=== PATIENT | female | born 1995 | race Hispanic/Latino ===

== ENCOUNTER 2017-09-07 14:52 | Emergency (ER) | payer SELFPAY ==
[2017-09-07] MEDS ORDERED: ONDANSETRON ODT 4 MG TAB ONE (15:22)
[2017-09-07 15:43] LABS: APPEARANCE,URINE Turbid (CLEAR); BILIRUBIN,URINE Negative (NEGATIVE); COLOR,URINE Yellow (YELLOW); GLUCOSE, URINE (UA) Negative (NEGATIVE); KETONES,URINE >=80 mg/dL (NEGATIVE); LEUKOCYTE ESTERASE ,URINE Negative (NEGATIVE); NITRATE,URINE Negative (NEGATIVE); OCCULT BLOOD,URINE Moderate (NEGATIVE); PH,URINE >=9.0 (5.0-8.0); PROTEIN,URINE POS 1+ (NEGATIVE)
[2017-09-07] MEDS ORDERED: KETOROLAC TROMETHAMINE 30MG/ML ONE (15:50)
[2017-09-07 16:07] LABS: BACTERIA,URINE Moderate /HPF (None Seen); RBC,URINE 0-1 /HPF (0-1); WBC,URINE 0-1 /HPF (0-1)
[2017-09-07 16:08] LABS: AMORPHOUS SEDIMENT,UR Moderate /LPF (None Seen)
== END 2017-09-07 16:28 | disposition home or self-care (01) ==
LOC: EDH 14:52
DX: N94.6 Dysmenorrhea, unspecified (principal); R11.10 Vomiting, unspecified
CPT/HCPCS: 81001; 81025; 96372; 99284; J1885

== ENCOUNTER 2018-09-03 17:40 | Observation (INO) | payer MEDICAID ==
[~2018-09-03] VITALS: Ht 154.9 cm; Wt 73.0 kg
[2018-09-03] MEDS ORDERED: ACETAMINOPHEN EXTRA STRENGTH 500 MG TABLET PO PRN (18:30)
[2018-09-03] MEDS ORDERED: PHARMACY COMMUNICATION MISC SCH (19:15)
--- NOTE | 2018-09-03 19:15 | NUR ---
Received report: Received report from Arie Odonnell RN. Patient needs 2 units PRBC came in for Vaginal Bleeding spontaneous . Patient came in as direct admit ambulatory. Patient oriented to her room, call light given. Plan of care discussed with patient verbalized understanding. IV fluid started, blood drawn for CBC and Blood typing.
[2018-09-03 19:30] VITALS: BP 120/74
--- NOTE | 2018-09-03 19:30 | NUR ---
Vaginal bleeding small amount noted on her miguel angel pad: No active bleeding noted.
[2018-09-03 19:32] LABS: HEMATOCRIT 36.8 % (36-48); MEAN CORPUSCULAR HEMOGLOBIN 30.8 pg (27.0-33.0); MEAN CORPUSCULAR HGB CONC 34.4 g/dL (32.0-36.0); MEAN CORPUSCULAR VOLUME 89.6 fL (79-99); PLATELET COUNT (AUTO) 309 K/uL (130-400); RED CELL DISTRIBUTION WIDTH 12.7 % (11.0-15.5)
--- NOTE | 2018-09-03 20:22 | NUR ---
Communication: Dr. Salazar called informed about patient status and plan of care to transfuse 2 units PRBC ordered from the [facility] per report she had Hemoglobin of 7 in the clinic. Blood drawn CBC at 1915 resulted 12.6 hemoglobin and 36.8. Received orders to repeat CBC to confirm. If hemoglobin is 7 and above do not transfuse Blood, hold and repeat CBC in AM.
[2018-09-03 20:34] LABS: HEMATOCRIT 35.6 % (36-48); MEAN CORPUSCULAR HGB CONC 34.5 g/dL (32.0-36.0); MEAN CORPUSCULAR VOLUME 89.8 fL (79-99); PLATELET COUNT (AUTO) 311 K/uL (130-400); RED BLOOD CELL COUNT(AUTO) 3.97 MIL/uL (4.00-5.50); RED CELL DISTRIBUTION WIDTH 12.9 % (11.0-15.5); WHITE BLOOD COUNT (AUTO) 9.1 K/uL (4.8-10.8)
[2018-09-03] MEDS: LACTATED RINGERS 1000ML 1,000 ML IV SCH (21:30)
--- NOTE | 2018-09-03 23:22 | NUR ---
PATIENT: PATIENT INFORMED NOT TO EAT OR DRINK ANYTHING AFTER MIDNIGHT, SHE VERBALIZES UNDERSTANDING.
[2018-09-03 23:47] VITALS: BP 112/69
[2018-09-04] VITALS (9 sets, daily range): BP systolic 96–120; BP diastolic 53–67
[2018-09-04] MEDS: LACTATED RINGERS 1000ML 1,000 ML IV SCH (05:41)
[2018-09-04 05:43] LABS: HEMATOCRIT 37.5 % (36-48); MEAN CORPUSCULAR HEMOGLOBIN 31.2 pg (27.0-33.0); MEAN CORPUSCULAR HGB CONC 34.4 g/dL (32.0-36.0); MEAN CORPUSCULAR VOLUME 90.6 fL (79-99); NUCLEATED RED BLOOD CELLS 0.1 % (0.0-0.19); PLATELET COUNT (AUTO) 281 K/uL (130-400); RED BLOOD CELL COUNT(AUTO) 4.14 MIL/uL (4.00-5.50); RED CELL DISTRIBUTION WIDTH 12.8 % (11.0-15.5); WHITE BLOOD COUNT (AUTO) 7.9 K/uL (4.8-10.8)
[2018-09-04] MEDS ORDERED: LIDOCAINE PF 2% 5ML ABBOJECT ONE (06:24)
[2018-09-04] MEDS ORDERED: DEXAMETHASONE SOD PHOSPHATE 10MG/ML 1ML VIAL ONE (06:24)
[2018-09-04] MEDS ORDERED: MIDAZOLAM HCL 1 MG/ML 2ML VIAL ONE (06:25)
[2018-09-04] MEDS ORDERED: FENTANYL CITRATE PF 50 MCG/1 ML 2ML VIAL ONE (06:25)
[2018-09-04] MEDS ORDERED: ONDANSETRON HCL 4 MG/2 ML VIAL ONE ×2 (06:25→07:37)
[2018-09-04] MEDS ORDERED: PROPOFOL 10 MG/ML 20ML VIAL IV ONE (06:25)
[2018-09-04] MEDS ORDERED: MEPERIDINE-PF 25 MG/ML SYG ONE (07:37)
[2018-09-04] MEDS ORDERED: ACETAMINOPHEN-CODEINE 300/30MG TAB PO PRN (08:00)
[2018-09-04] MEDS ORDERED: IBUPROFEN 600 MG TABLET PO PRN (08:00)
[2018-09-04] MEDS ORDERED: MORPHINE SULFATE 2 MG/ML 1ML SYG IVP PRN (11:30)
[2018-09-04] MEDS ORDERED: EPHEDRINE SULFATE 50 MG/ML AMPULE IVP PRN (11:30)
[2018-09-04] MEDS ORDERED: HYDROCODONE/ACETAMINOPHEN 5/325 MG TAB PO PRN ×2 (11:30)
[2018-09-04] MEDS ORDERED: PROMETHAZINE HCL 25 MG/ML 1ML AMPULE IM PRN (11:30)
[2018-09-04] MEDS ORDERED: NALOXONE HCL 0.4 MG/1 ML ML IVP PRN (11:30)
[2018-09-04] MEDS ORDERED: METOCLOPRAMIDE 10 MG/2 ML VIAL IVP PRN (11:30)
[2018-09-04] MEDS ORDERED: DiphenhydrAMINE HCL 50 MG/ML VIAL IVP PRN (11:30)
[2018-09-04] MEDS ORDERED: ONDANSETRON HCL 4 MG/2 ML VIAL IVP PRN ×2 (11:30)
[2018-09-04] MEDS ORDERED: ONDANSETRON HCL 4 MG/2 ML 8 MG in SODIUM CHLORIDE 0.9% 50 ML IVP NR (11:30)
--- NOTE | 2018-09-04 11:30 | NUR ---
DISCHARGE PT LEFT UNIT VIA WHEELCHAIR, ACCOMPANIED BY MOTHER. DENIED PAIN AND HAD NO COMPLAINTS AT THIS TIME. TRANSPORTED BY PERSONAL VEHICLE.
== END 2018-09-04 11:30 | disposition home or self-care (01) ==
LOC: WSH 17:40 → EDSTATUS 09-04 09:25
PROVIDERS: ADMIT Obstetrics & Gynecology; ATTEND Obstetrics & Gynecology
DX: O03.4 Incomplete spontaneous abortion without complication (principal); D64.9 Anemia, unspecified; O99.013 Anemia complicating pregnancy, third trimester; D50.0 Iron deficiency anemia secondary to blood loss (chronic); Z83.3 Family history of diabetes mellitus; Z23 Encounter for immunization
CPT/HCPCS: 36415 ×2; 59812; 85027 ×3; 86850; 86900; 86901; 86922; 88305; A4606; G0008; G0378 ×19; J1100; J2001; J2175; J2250; J2405 ×2; J2704; J3010; J7120 ×3; Q2035

== ENCOUNTER 2019-05-19 23:05 | Observation (INO) | payer MEDICAID ==
[~2019-05-19] VITALS: Ht 165.1 cm; Wt 80.7 kg
[2019-05-19 23:29] VITALS: BP 120/62
[2019-05-19 23:43] LABS: APPEARANCE,URINE Clear (CLEAR); BILIRUBIN,URINE Negative (NEGATIVE); COLOR,URINE Yellow (YELLOW); GLUCOSE, URINE (UA) 250 mg/dL (NEGATIVE); KETONES,URINE Negative (NEGATIVE); LEUKOCYTE ESTERASE ,URINE Trace (NEGATIVE); NITRATE,URINE Negative (NEGATIVE); OCCULT BLOOD,URINE Negative (NEGATIVE); PROTEIN,URINE Negative (NEGATIVE)
[2019-05-20 00:04] LABS: BACTERIA,URINE Rare /HPF (None Seen); RBC,URINE None Seen /HPF (0-1); SQUAMOUS EPITHELIAL CELL,UR Rare /HPF (0-2); WBC,URINE 0-1 /HPF (0-1)
== END 2019-05-20 00:50 | disposition home or self-care (01) ==
LOC: EDH 23:05 → LDH 23:21
PROVIDERS: ADMIT Obstetrics & Gynecology; ATTEND Obstetrics & Gynecology
DX: O36.8120 Decreased fetal movements, second trimester, not applicable or unspecified (principal); Z3A.27 27 weeks gestation of pregnancy
CPT/HCPCS: 81001; 99284; G0378